=== PATIENT | female | born 1985 | race Caucasian/White ===

== ENCOUNTER 2017-03-30 09:13 | Outpatient (CLI) | payer OTHER ==
[~2017-03-30] VITALS: Ht 167.6 cm; Wt 71.7 kg
[2017-03-30 09:28] VITALS: Ht 167.6 cm; Wt 71.7 kg
[2017-03-30 09:29] VITALS: BP 131/79; PULSE 100; RESP 18
[2017-03-30] MEDS ORDERED: PNV11TAB PO (09:32)
--- NOTE | 2017-03-30 10:24 | RADRPT ---
PROCEDURE: OB ultrasound for biophysical profile CLINICAL INDICATION: Gestational diabetes mellitus. TECHNIQUE: Multiple sonographic images of the pelvis were obtained. Transabdominal view of the gr avid uterus are available for review. The images were reviewed on a PACS workstation. COMPARISON: None FINDINGS: breathing movement = 2/2 tone = 2/2 motion = 2/2 Quantitative amniotic fluid volume = 2/2 MAAME = 12.8 cm Single live intrauterine with cardiac activity at 128 beats per minute. There is a posterior placenta without previa or abruption. IMPRESSION: 1. Single living intrauterine gestation in cephalic position. 2. Biophysical profile = 01/04. 3. MAAME = 12.8 cm. RPTAT: [facility] Physician Franklin Date Time Electronically viewed and signed by Physician Franklin on 03/30/2017 10:24 /
--- NOTE | 2017-03-30 15:52 | PN ---
Triage Information Date/Time 03/30/2017 Reason for visit: For NST/ BPP due to GDM A1. sent by her OB Weeks of Gestation 35 weeks and 4 days /Para Diabetes: gestational Hypertention: none Additional information 32-year-old with IUP at 35 weeks and 4 days with gestational diabetes diet -controlled) is a care with Dr. Tamar Starr was sent for NST/BPP. She denies any leaking of fluid, vaginal bleeding or decreased movement. Has been compliant with checking her blood sugar. Her random blood sugar today is 90. Objective Vital Signs Date Time Temp Pulse Resp B/P Pulse Ox O2 Delivery O2 Flow Rate FiO2 03/30/17 09:29 98.1 100 18 131/79 Heart Rate: 130's Contractions: >10 Minutes Apart Exam General appearance: Alert and oriented 4. Patient does not appear to be in any acute distress. Abdomen: Soft, gravid, fundal height consistent with gestational age NST: Category 1 BPP: 01/04 PROCEDURE: OB ultrasound for biophysical profile CLINICAL INDICATION: Gestational diabetes mellitus. TECHNIQUE: Multiple sonographic images of the pelvis were obtained. Transabdominal view of the gravid uterus are available for review. The images were reviewed on a PACS workstation. COMPARISON: None FINDINGS: breathing movement = 2/2 tone = 2/2 motion = 2/2 Quantitative amniotic fluid volume = 2/2 MAAME = 12.8 cm Single live intrauterine with cardiac activity at 128 beats per minute. There is a posterior placenta without previa or abruption. IMPRESSION: 1. Single living intrauterine gestation in cephalic position. 2. Biophysical profile = 01/04. 3. MAAME = 12.8 cm. Results/Medications Results 24 hrs Laboratory Tests Test 03/30/17 11:08 Bedside Glucose 90 Disposition: Discharge Assessment/Plan IUP at 35 weeks and 4 days Gestational diabetes diet-controlled testing reassuring Patient was advised to return to clinic in 2 days for repeat NST/BPP and follow- up with her [facility] in 1 week or sooner as needed She will contact her [facility] office to inquire about follow-up appointments Strict labor precautions, kick count and follow-up with GI as in 2 days for repeat NST if I discussed with patient patient verbalized understanding VERONICA BARNES MD Mar 30, 2017 15:52
--- NOTE | 2017-03-30 16:04 | TRIAGE ---
OB Triage Datetime Report Generated by CPN: 03/30/2017 16:04 Datetime: 03/30/2017 12:15 Stage of : OB Triage Datetime: 03/30/2017 12:05 Comments: LOSS OF CONTACT, MATERNAL PULSE Datetime: 03/30/2017 11:56 Labor Evaluation Frequency: OCCAS Monitor Mode: External Duration (sec)2399: 30-50 Quality: Mild Resting Tone [place]: Relaxed Heart Rate FHR Baseline Rate: 135 Monitor Mode: External US Variability: Moderate 6-25 bpm Accelerations: 10X10 Decelerations: None Category: Category I Pain Assessment Pain Scale: 3 Pain Presence: Constant Pain Type: Ache Pain Location: Back Pain Goal: 3 Pain Relief Measures: Comfort Measures Datetime: 03/30/2017 11:42 Comments: mothers pulse Datetime: 03/30/2017 11:41 Stage of : OB Triage Datetime: 03/30/2017 11:33 Stage of : OB Triage Datetime: 03/30/2017 11:30 Stage of : OB Triage Datetime: 03/30/2017 11:20 Labor Evaluation Frequency: 0 Monitor Mode: External Resting Tone [place]: Relaxed Heart Rate FHR Baseline Rate: 135 Monitor Mode: External US Variability: Moderate 6-25 bpm Accelerations: 10X10 Decelerations: None Category: Category I Pain Assessment Pain Scale: 1 Pain Presence: Intermittent Pain Type: Cramping Pain Location: Abdomen Pain Goal: 3 Pain Relief Measures: Comfort Measures Datetime: 03/30/2017 11:00 Comments: loss of contact, mothers pulse Datetime: 03/30/2017 10:40 Monitor Mode: External US Comments: loss of contact, mothers pulse, Datetime: 03/30/2017 10:12 Labor Evaluation Frequency: occas Monitor Mode: External Duration (sec)2399: 30-50 Quality: Mild Resting Tone [place]: Relaxed Contraction Comments: feels mildly Heart Rate FHR Baseline Rate: 125 Monitor Mode: External US Variability: Moderate 6-25 bpm Accelerations: 10X10 Decelerations: None Category: Category I Pain Assessment Pain Scale: 3 Pain Presence: Intermittent Pain Type: Cramping Pain Location: Back Pain Goal: 3 Pain Relief Measures: Comfort Measures Datetime: 03/30/2017 09:45 Monitor Mode: External US Datetime: 03/30/2017 09:23 Stage of : OB Triage Assessment Type: Triage EGA: 35.4 Maternal Assessment Level of Consciousness: Fully Conscious DTR's/Clonus: DTRs 2+; No Clonus Headache: Denies Blurred Vision: No Respiratory Effort: Unlabored; Regular Rhythm; Equal Expansion Breath Sounds, Left: Clear and Equal Breath Sounds, Right: Clear and Equal Nausea/Vomiting: Denies RUQ Epigastric Pain: Denies Facial Edema: None Temperature Route: Axillary Fall Risk Assessment History of Falling: (0) No Secondary Diagnosis: (0) No Ambulatory Aid: (0) Bedrest/Nurse Assist IV Therapy: (0) No Gait: (0) Normal/Bedrest/Immobile Mental Status: (0) Oriented to Own Ability Fall Score: 0 Fall Risk Score Definition: No Risk: No action required Labor Evaluation Frequency: 0 Monitor Mode: External Resting Tone [place]: Relaxed Heart Rate FHR Baseline Rate: 125 Monitor Mode: External US Variability: Moderate 6-25 bpm Decelerations: None Category: Category II Pain Assessment Pain Scale: 0 Pain Presence: None/Denies Pain Type: N/A Pain Goal: 3 Pain Relief Measures: Comfort Measures Datetime: 03/30/2017 09:21 Time of Arrival: 03/30/2017 09:05 Arrived By: Ambulatory Arrived From: Home Chief Complaint: SENT FROM OFFICE NST/BPP GDM, DENIES BLEEDING, LEAKING OR UC'S Movement: Present Contractions: Occasional Rupture of Membranes: Denies Vaginal Bleeding: None Vaginal Discharge: Denies Recent Sexual Intercouse: Denies Abdominal Trauma: Not Applicable Patient Complaints: None Time Provider Notified: 03/30/2017 11:30 Provider Notified: camelia Initial Plan: MONITOR, BPP/MAAME,
== END 2017-03-30 12:20 | disposition home or self-care (01) ==
LOC: L-D 09:13 → OBT 09:13
PROVIDERS: ATTEND Obstetrics & Gynecology
DX: O24.410 Gestational diabetes mellitus in pregnancy, diet controlled (principal); Z3A.35 35 weeks gestation of pregnancy
CPT/HCPCS: 76818; 82962; Z7500; G0463

== ENCOUNTER 2017-04-25 07:08 | Inpatient (IN) | payer OTHER ==
--- NOTE | 2017-04-23 23:59 | PREOPHP ---
DATE OF ADMISSION: 04/01/2017 The patient is coming for surgery for 04/25/2017. HISTORY OF PRESENT ILLNESS: This is a 32-year-old female 3, para 2. This patient had 2 pre vious sections and her due date is 04/30/2017. She had a history of having a fundoplicatio n at and. She has been having issues in her childhood with male doctors for which she has ref used testing in pelvic area. She had done herself GBS culture that was negative. She is being offe red a repeat section. She does not want a tubal ligation and she has become a GDM by histo ry. She had refused all kinds of blood tests as well and she has been treated for hypoglycemia. Th is patient has been instructed on how she should be eating during to avoid hypoglycemia. She had refused a 1-hour and 3-hour GTT. Her hemoglobin A1c at the beginning was abnormally l ow and also we had positive drug screening that had been done randomly when she comes in the office. She had agreed to some testing. She had negative chlamydia, she had negative GBS, negative toxopl asmosis, thyroid was normal, negative cytomegalovirus and she had controlled her blood sugar. Cysti c fibrosis was negative and she had tested positive for marijuana several times. Her blood sugar le vels, like I had had been monitored by patient and they were very low in the morning for which instr uctions and diet had been explained several times. She had coming up for NSTs and BPPs that have be en normal. The patient is being admitted for a repeat section and she had refused tubal li gation. PAST MEDICAL HISTORY: Noncontributory on family's side. On her side is only for C-sections and so me issues in childhood that had determined she is scared of doctors and she does not let all the abel ts go on. She has marijuana usage. ALLERGIES: She does not have any allergies. SOCIAL HISTORY: She had no history of smoking or alcohol. PHYSICAL EXAMINATION: VITAL SIGNS: Height is 5 feet, 6 inches, initial weight was 145. At this time, she weighs 160, the blood pressure is 110/70, respirations 16, pulse is 80. HEAD AND NECK: Normal. CHEST: Clear. HEART: Normal sinus rhythm. LUNGS: Clear. BREASTS: Soft, nontender, no masses. ABDOMEN: Soft. Uterus at term with normal heart tones. PELVIC: Not done due to her refusal. EXTREMITIES: Normal with normal pulses and no edema. With a diagnosis of term , previous sections x2, GDM A1, she is undergoing a repea t section. She has been advised of the possible risks and possible complications of the pr ocedure with her alternatives and options. Written information was provided. She had no more quest ions and agreed to go ahead with the procedure with full understanding and no more questions. Dictated By: JOSE ELIAS DRAKE/NTS Conf#: [id number] DID#: [id number]
[~2017-04-25] VITALS: Ht 167.6 cm; Wt 70.5 kg
[~2017-04-25 07:08] MED LIST: EPHEDrine SULFATE 50 MG/5 ML SYG ONE; PNV11TAB PO
[2017-04-25 07:48] VITALS: BP 134/83; PULSE 108; RESP 20
[2017-04-25 07:51] VITALS: Ht 167.6 cm; Wt 70.5 kg
[2017-04-25] MEDS ORDERED: METHYLERGONOVINE 0.2 MG INJ IM PRN ×2 (08:00→10:00)
[2017-04-25] MEDS ORDERED: CEFAZOLIN 2 GM/50 ML (PMX) 50 ML IV SCH (08:00)
[2017-04-25] MEDS ORDERED: CARBOPROST 250 MCG INJ IM PRN ×2 (08:00→10:00)
[2017-04-25] MEDS ORDERED: OXYTOCIN 30 UNITS/LR 500 ML IV PRN ×2 (08:00→10:00)
[2017-04-25] MEDS ORDERED: MISOPROSTOL 200 MCG TAB PR PRN ×2 (08:00→10:00)
[2017-04-25] MEDS: LACTATED RINGER'S 1,000 ML IV SCH ×4 (08:32→21:03)
[2017-04-25] MEDS ORDERED: LACTATED RINGER'S 1,000 ML IV ONE (08:39)
[2017-04-25 08:53] LABS: INR 0.88; PROTIME 11.9 Sec (12.2-14.2); PT RATIO 0.9
[2017-04-25 08:54] LABS: PARTIAL THROMBOPLASTIN TIME 25.5 Sec (25.0-35.0)
[2017-04-25] MEDS ORDERED: METOCLOPRAMIDE 10 MG INJ IV ONE (09:00)
[2017-04-25] MEDS ORDERED: CITRIC ACID/SODIUM CITRATE 15 ML CUP PO ONE (09:00)
[2017-04-25] MEDS ORDERED: FAMOTIDINE 20 MG INJ IV ONE (09:00)
[2017-04-25 09:15] LABS: BASOPHIL # 0.1 10^3/ul (0.0-0.1); BASOPHILS % 0.4 % (0.0-2.0); EOSINOPHILS % 0.1 % (0.0-7.0); HEMATOCRIT 39.8 % (37.0-47.0); HEMOGLOBIN 14.1 g/dl (12.0-16.0); LYMPHOCYTES # 1.3 10^3/ul (0.8-2.9); LYMPHOCYTES % 9.6 % (15.0-51.0); MEAN CORPUSCULAR HEMOGLOBIN 33.1 pg (29.0-33.0); MEAN CORPUSCULAR VOLUME 93.4 fl (82.0-101.0); MEAN PLATELET VOLUME 11.1 fl (7.4-10.4); MONOCYTE # 0.7 10^3/ul (0.3-0.9); MONOCYTES % 5.5 % (0.0-11.0); NEUTROPHIL # 11.2 10^3/ul (1.6-7.5); NEUTROPHILS % 83.8 % (39.0-77.0); PLATELET COUNT 174 10^3/UL (140-415); RED BLOOD COUNT 4.26 10^6/ul (4.20-5.40); RED CELL DISTRIBUTION WIDTH 12.7 % (11.5-14.5); WHITE BLOOD COUNT 13.3 10^3/ul (4.8-10.8)
[2017-04-25 09:22] LABS: MEAN CORPUSCULAR HGB CONC 35.4 g/dl (32.0-37.0)
[2017-04-25] MEDS ORDERED: FENTAnyl 50 MCG/ML VIAL ONE ×2 (09:47→10:40)
[2017-04-25] MEDS ORDERED: morphine SULFATE/PF (10 MG/10 ML) INJ ONE (09:47)
[2017-04-25] MEDS: CEFAZOLIN 2 GM/50 ML (PMX) 50 ML IV SCH ×2 (09:53→17:55)
[2017-04-25] MEDS ORDERED: LANOLIN 7 GM TUBE TOP PRN (10:00)
[2017-04-25] MEDS ORDERED: HYDROCODONE/APAP (5/325) TAB PO PRN (10:00)
[2017-04-25] MEDS ORDERED: NA PHOSPHATE/BIPHOS 133 ML ENEMA PR PRN (10:00)
[2017-04-25] MEDS ORDERED: METHYLERGONOVINE 0.2 MG TAB PO PRN (10:00)
[2017-04-25] MEDS ORDERED: PHENYLephrine (100 MCG/ML) 5ML SYG ONE (10:03)
[2017-04-25] MEDS ORDERED: ONDANSETRON 4 MG INJ ONE (10:17)
[2017-04-25] MEDS ORDERED: MIDAZOLAM 1 MG/ML 2 ML INJ ONE ×3 (10:20→10:43)
[2017-04-25] MEDS ORDERED: MEPERIDINE 100 MG INJ ONE (10:39)
[2017-04-25] MEDS ORDERED: DIPHENHYDRAMINE 50 MG INJ ONE (10:52)
[2017-04-25] MEDS ORDERED: KETOROLAC 30 MG INJ ONE (10:56)
[2017-04-25 11:05] LABS: BARBITURATES Negative (NEGATIVE); BENZODIAZEPINES Negative (NEGATIVE); COCAINE Negative (NEGATIVE); OPIATES Negative (NEGATIVE)
[2017-04-25 11:08] LABS: CANNABINOIDS Positive (NEGATIVE)
--- NOTE | 2017-04-25 11:19 | SIPON ---
Date/Time of Note Date/Time of Note DATE: 04/25/17 TIME: 11:16 Operative Report Preoperative Diagnosis TERM PREVIOUS C/S GDM Postoperative Diagnosis SAME Operation/Procedure Performed REPEAT C/S Surgeon see signature line embroidery assistant DR ARREGUIN Anesthesia: spinal Estimated blood loss: other Transfusion Required none Specimen PLACENTA Grafts/Implants none Complications none JOSE ELIAS NEWBY MD Apr 25, 2017 11:19
[2017-04-25] MEDS: OXYTOCIN 30 UNITS/LR 500 ML IV SCH ×3 (11:32→16:32)
[2017-04-25] MEDS ORDERED: KETOROLAC 30 MG INJ IV PRN (12:00)
[2017-04-25] MEDS ORDERED: MEPERIDINE 25 MG INJ IV PRN (12:00)
[2017-04-25] MEDS ORDERED: HYDROmorphONE (0.2 MG/ML) 10ML SYG IV PRN ×3 (12:00)
[2017-04-25] MEDS ORDERED: ZOLPIDEM 5 MG TAB PO PRN (12:00)
[2017-04-25] MEDS ORDERED: ONDANSETRON 4 MG INJ IV PRN ×2 (12:00)
[2017-04-25] MEDS ORDERED: PROCHLORPERAZINE 10 MG INJ IV PRN (12:00)
[2017-04-25] MEDS ORDERED: NALBUPHINE HCL (10 MG/1 ML) INJ IV PRN (12:00)
[2017-04-25] MEDS ORDERED: HYDROmorphONE 0.5 MG/0.5 ML SYG IV PRN (12:00)
[2017-04-25] MEDS ORDERED: NALOXONE (0.4 MG/ML) INJ IV PRN (12:00)
[2017-04-25] MEDS ORDERED: FENTAnyl 50 MCG/ML VIAL IV PRN ×3 (12:00)
[2017-04-25] MEDS ORDERED: DIPHENHYDRAMINE 50 MG INJ IV PRN ×2 (12:00)
[2017-04-25 15:20] VITALS: BP 115/65; PULSE 88; RESP 18
[2017-04-25] MEDS: KETOROLAC 30 MG INJ IV SCH ×3 (16:24→22:00)
[2017-04-25 16:43] VITALS: BP 135/68; PULSE 91; RESP 18
[2017-04-25 19:30] VITALS: BP 119/64; PULSE 87; RESP 21
[2017-04-25] MEDS: SENNA/DOCUSATE NA (8.6MG/50MG) TAB PO SCH (21:00)
[2017-04-26] MEDS: CEFAZOLIN 2 GM/50 ML (PMX) 50 ML IV SCH ×2 (02:20→10:16)
[2017-04-26] MEDS: HYDROmorphONE 0.5 MG/0.5 ML SYG IV PRN ×2 (02:21→06:43)
[2017-04-26 04:00] VITALS: BP 111/68; PULSE 73; RESP 20
[2017-04-26] MEDS: KETOROLAC 30 MG INJ IV SCH ×3 (04:09→16:00)
[2017-04-26] MEDS: LACTATED RINGER'S 1,000 ML IV SCH (04:13)
--- NOTE | 2017-04-26 06:03 | OPR ---
DATE OF OPERATION: 04/25/2017 PROCEDURE: Repeat low segment transverse section. PREOPERATIVE DIAGNOSES: 1. Term . 2. Previous section. 3. Gestational diabetes. POSTOPERATIVE DIAGNOSES: 1. Term . 2. Previous section. 3. Gestational diabetes. SURGEON: Jose Elias Carney MD. ENERGY PROJECT ENGINEER: . ANESTHESIOLOGIST: Dr. Rosales. ANESTHESIA: Spinal. DESCRIPTION OF PROCEDURE: The patient was given a spinal anesthesia, placed in the supine position. The abdomen was prepped and draped after the Johns catheter was placed in the bladder. An ellipti sandra incision was made around the previous old scar, the scar was removed and the abdomen was opened in layers without difficulties. There were extensive adhesions of the lower part of the uterus to t he abdominal wall. The incision was made in the lower uterine segment and the amniotic fluid was cl ear. The baby's head was delivered and the body was followed. There was a cord around the neck michelle t was passed through. The cord was clamped and cut. The baby was handed over to the cycling instructor team and cord blood was obtained. The placenta was removed. The uterus was cleaned out and the cer vix was opened. The uterus was closed with #1 Monocryl continuous suture in 2 layers, imbedding the first line of suture and hemostasis was good. The uterus was hypertrophic. Both tubes and ovaries were normal. The abdominal cavity was cleaned out and the peritoneum was closed with a 2-0 Vicryl. The fascia was closed with a PDS looped suture, 2-0 Vicryl for the subcutaneous tissue, 3-0 Monocr yl subcuticular to the skin with the usage of Dermabond and Steri-Strips. The patient tolerated the procedure well and left the OR awake and stable. Sponge counts, instrument counts, needle counts w ere correct. Intravenous antibiotics were given for prophylaxis. Blood loss was about 700 mL and t he urine was clear. Dictated By: JOSE ELIAS DRAKE/NTS Conf#: [id number] DID#: [id number]
[2017-04-26 07:40] VITALS: BP 132/60; PULSE 88; RESP 18
[2017-04-26] MEDS: SENNA/DOCUSATE NA (8.6MG/50MG) TAB PO SCH ×2 (09:00→20:55)
[2017-04-26 12:25] LABS: BASOPHIL # 0.1 10^3/ul (0.0-0.1); BASOPHILS % 0.4 % (0.0-2.0); EOSINOPHILS % 0.2 % (0.0-7.0); HEMATOCRIT 33.6 % (37.0-47.0); HEMOGLOBIN 12.1 g/dl (12.0-16.0); LYMPHOCYTES # 1.2 10^3/ul (0.8-2.9); LYMPHOCYTES % 9.3 % (15.0-51.0); MEAN CORPUSCULAR HEMOGLOBIN 33.8 pg (29.0-33.0); MEAN CORPUSCULAR VOLUME 93.9 fl (82.0-101.0); MEAN PLATELET VOLUME 11.2 fl (7.4-10.4); MONOCYTE # 1.2 10^3/ul (0.3-0.9); MONOCYTES % 9.7 % (0.0-11.0); NEUTROPHILS % 80.1 % (39.0-77.0); PLATELET COUNT 174 10^3/UL (140-415); RED BLOOD COUNT 3.58 10^6/ul (4.20-5.40); RED CELL DISTRIBUTION WIDTH 13.1 % (11.5-14.5); WHITE BLOOD COUNT 12.5 10^3/ul (4.8-10.8)
[2017-04-26] MEDS: HYDROCODONE/APAP (5/325) TAB PO PRN ×2 (13:41→23:53)
[2017-04-26 15:50] VITALS: BP 112/65; PULSE 66; RESP 18
--- NOTE | 2017-04-26 18:33 | PN ---
Date/Time of Note Date/Time of Note DATE: 04/26/17 TIME: 18:33 Assessment/Plan Lines/Catheters IV Catheter Type (from Nrsg): Peripheral IV Subjective 24 Hr Interval Summary da 1 post c/s Constitutional: BM, ambulates, flatus, improved, no complaints, urine output Feeding: advancing diet Pain Control: well controlled Detailed Summary Eyes: no complaints ENT: no complaints Respiratory: no complaints Cardiovascular: no complaints Gastrointestinal: no complaints Genitourinary: no complaints Musculoskeletal: no complaints Skin: no complaints Neurologic: no complaints Endocrine: no complaints Lymphatic: no complaints Psychological: nl mood/affect, no complaints Immunologic: no complaints Exam/Review of Systems Vital Signs Vitals Vital Signs Date Time Temp Pulse Resp B/P Pulse Ox O2 Delivery O2 Flow Rate FiO2 04/26/17 15:50 97.7 66 18 112/65 Room Air 04/26/17 03:22 98 21 Intake and Output 04/25/17 04/25/17 04/26/17 15:00 23:00 07:00 Intake Total 2500 ml 1500 ml 125 ml Output Total 2150 ml 900 ml 700 ml Balance 350 ml 600 ml -575 ml Exam Constitutional: alert, oriented, well developed Psych: nl mood/affect, no complaints Head: atraumatic, normocephalic Eyes: EOMI, nl conjunctiva, nl lids, nl sclera ENMT: mucosa pink and moist, nl external ears & nose, nl lips & teeth, nl nasal mucosa & septum Neck: non-tender, supple Respiratory: clear to auscultation, normal air movement Cardiovascular: nl pulses, regular rate and rhythm Gastrointestinal: nl liver, spleen, non-tender, soft Musculoskeletal: nl extremities to inspection, nl gait and stance Extremities: normal pulses Neurological: CIGARETTE ROLLER II-XII intact, nl mental status, nl speech, nl strength Skin: nl turgor, rash or lesions Lymph: nl lymph nodes Results Result Diagram: 04/26/17 1121 04/25/17 0815 JOSE ELIAS NEWBY MD Apr 26, 2017 18:33
[2017-04-26] MEDS ORDERED: BISACODYL (EC) 5 MG TAB PO ONE (19:00)
[2017-04-26 19:50] VITALS: BP 130/70; PULSE 85; RESP 20
[2017-04-26] MEDS: IBUPROFEN 800 MG TAB PO SCH (21:56)
[2017-04-27] MEDS: HYDROCODONE/APAP (5/325) TAB PO PRN ×3 (02:00→11:34)
[2017-04-27 03:00] VITALS: BP 128/66; PULSE 84; RESP 19
[2017-04-27] MEDS: IBUPROFEN 800 MG TAB PO SCH ×2 (06:08→14:36)
[2017-04-27 07:42] VITALS: BP 126/68; PULSE 85; RESP 19
[2017-04-27] MEDS: SENNA/DOCUSATE NA (8.6MG/50MG) TAB PO SCH (09:00)
--- NOTE | 2017-04-27 12:43 | PD.PPDC ---
KEY ACCOUNT DIRECTOR Discharge Instruction Condition Patient Condition: Good Diet Diet: Resume Regular Diet Activity/Restrictions Activity: Normal Activity May Shower Restrictions: No Exercising No Lifting No Driving No Sexual Activity Nothing in the Vagina No [place] No Tampons, douche Wound/Drain Care Instructions Wound/Drain Care Instructions: Wash with soap and water Keep clean and dry Follow-up Follow-up with Physician: 2, Week/Weeks Return to clinic for CUT OFF SAW GRADER Instructions: Fever greater than 101 Chills Worsening abdominal pain Excessive Vaginal Bleeding More than 2 pads per hour Unable to tolerate diet OB Instructions: Breast Tenderness Depression Blurried Vision Headache Surgical Instructions: Incisional Drainage Incisional Redness JOSE ELIAS NEWBY MD Apr 27, 2017 12:43
--- NOTE | 2017-04-27 12:46 | DS ---
Date/Time of Note Date/Time of Note DATE: 04/27/17 TIME: 12:44 Obstetrical Discharge Record Final Diagnosis Final Diagnosis: Term delivered Other Final Diagnosis Term Gestational diabetes A1 Previous section Repeat section Section Section: Repeat Complications Gestational Diabetes Augmentation: No Induction: No Rupture of Membranes: No Condition on Discharge Physical Assessment Voiding: Yes Bowel Movement: Yes Breast: Soft, non-tender, Filling Fundus: Firm Abdomen and Incision: Incision healing well Patient is ambulatory Afebrile Tolerating diet, voiding well, had a bowel movement. Incision is healing very well. Pain is controlled with p.o. meds Laboratory testing near normal. Instructions were given to call me at any time with any problems or see me in the office in 1 week Calf Tenderness: No Patient Condition: Good JOSE ELIAS NEWBY MD Apr 27, 2017 12:46
[2017-04-28] MEDS ORDERED: DIPHTH/TET/ACEL PERTUSS (ADULT) 0.5 ML VIAL IM* ONE (09:00)
== END 2017-04-27 15:00 | disposition home or self-care (01) | DRG 765 ==
LOC: L-D 07:08 → PP1 14:59
PROVIDERS: ADMIT Obstetrics & Gynecology; ATTEND Obstetrics & Gynecology
PROC: 10D00Z1 Extraction of Products of Conception, Low, Open Approach (ICD-10-PCS; principal; 2017-04-25 09:00)
DX: O34.211 Maternal care for low transverse scar from previous cesarean delivery (principal); O99.324 Drug use complicating childbirth; O24.420 Gestational diabetes mellitus in childbirth, diet controlled; F12.90 Cannabis use, unspecified, uncomplicated; Z37.0 Single live birth; Z3A.39 39 weeks gestation of pregnancy
CPT/HCPCS: 80307; 82947; 85025; 85610; 85730; 86592; 86850; 86870; 86900; 86901; 86902; 87340; 94760; 99464; J0690; J1170; J1200; J1885; J2175; J2250; J2274; J2370; J2405; J2590; J2765; J3010; J7120

== ENCOUNTER 2017-04-29 11:15 | Emergency (ER) | payer OTHER ==
[~2017-04-29] VITALS: Ht 167.6 cm; Wt 69.2 kg
[2017-04-29 11:29] VITALS: Ht 167.6 cm; Wt 69.2 kg
[2017-04-29] MEDS ORDERED: HYDROmorphONE 2 MG/ML SYG IM STA (11:45)
[2017-04-29] MEDS ORDERED: ONDANSETRON (ODT) 4 MG TAB ODT STA (11:45)
[2017-04-29] MEDS ORDERED: CEPHALEXIN 500 MG CAP PO ONE (12:00)
[2017-04-29] MEDS ORDERED: HYDR-902 PO (12:23)
[2017-04-29] MEDS ORDERED: CEPH-443 PO (13:41)
--- NOTE | 2017-04-29 13:51 | ERD ---
ER Documentation Chief Complaint Chief Complaint Pt presents with B breast pain X 2 days, hx of mastitis, c-sec 04/25 HPI Patient is a 32-year-old female with no medical problems who presents saying that she has "mastitis and breast engorgement". She said her symptoms started on Tuesday after she delivered her baby. She has subjective fever and nausea. She took [place] and ibuprofen. She is refusing to pump because she says nothing comes out. Upon review of old medical records this is the patient' s first visit to the emergency department. She is requesting a medicine to stop her milk production. ROS All systems reviewed and are negative except as per history of present illness. Medications Home Meds Active Scripts Cephalexin* (Keflex*) 500 Mg Capsule, 500 MG PO QID for 7 Days, CAP Prov:RHODA CAMPBELL MD 04/29/17 Hydrocodone/Acetaminophen ([place] 10-325 Tablet) 1 Each Tablet, 1 TAB PO Q6H Y for PAIN, #7 TAB Prov:RHODA CAMPBELL MD 04/29/17 Discontinued Reported Medications [id number] ( 19) 1 Each Tablet, 1 TAB PO DAILY, TAB 03/30/17 Allergies Allergies: Coded Allergies: No Known Allergy (Unverified , 03/30/17) PMhx/Soc Medical and Surgical Hx: pt denies Medical Hx History of Surgery: Yes (C/S X3) Anesthesia Reaction: No Hx Neurological Disorder: No Hx Respiratory Disorders: No Hx Cardiac Disorders: No Hx Psychiatric Problems: No Hx Miscellaneous Medical Probl: Yes Hx Alcohol Use: No Hx Substance Use: No Hx Tobacco Use: No Smoking Status: Never smoker FmHx Family History: No diabetes Physical Exam Vitals Vital Signs Date Time Temp Pulse Resp B/P Pulse Ox O2 Delivery O2 Flow Rate FiO2 04/29/17 11:29 99.4 78 18 167/104 100 Physical Exam Const: Moderate distress secondary to pain Head: Atraumatic Eyes: Normal Conjunctiva ENT: Normal External Ears, Nose and Mouth. Neck: Full range of motion..~ No meningismus. Resp: Clear to auscultation bilaterally Cardio: Regular rate and rhythm, no murmurs Abd: Soft, non tender, non distended. Normal bowel sounds Skin: Breast engorgement with tenderness to palpation bilaterally but no obvious signs of cellulitis or abscess Back: No midline or flank tenderness Ext: No cyanosis, or edema Neur: Awake and alert Psych: Normal Mood and Affect Results 24 hrs Current Medications Medications (Trade) Dose Ordered Sig/Meredith Route PRN Reason Start Time Stop Time Status Last Admin Dose Admin Hydromorphone HCl (Dilaudid) 2 mg ONCE STAT IM 04/29/17 11:45 04/29/17 11:46 DC 04/29/17 11:53 Ondansetron HCl (Zofran Odt) 4 mg ONCE STAT ODT 04/29/17 11:45 04/29/17 11:46 DC 04/29/17 11:52 Cephalexin (Keflex) 500 mg ONCE ONCE PO 04/29/17 12:00 04/29/17 12:01 DC 04/29/17 11:52 Procedures/MDM Patient is a 32-year-old female who presents with bilateral pleural breast engorgement after delivery of her baby. She was given Dilaudid and feels better. I had the customer care voice consultant come to the bedside but the patient is refusing any sort of pumping. The patient will be given Keflex and [place] for pain and possible mastitis. The patient is requesting a medicine which he thinks may be bromocriptine to stop her milk production however I do not feel comfortable prescribing this at this time and this would need to be done by her OB doctor if required. I believe outpatient management is appropriate. Departure Diagnosis: Primary Impression: Engorgement of breasts, Additional Impression: Breast pain Condition: Fair Patient Instructions: Pain Management Referrals: JOSE ELIAS NEWBY MD Additional Instructions: Call your primary care doctor TOMORROW for an appointment during the next 1-2 days.See the doctor sooner or return here if your condition worsens before your appointment time. RHODA CAMPBELL MD Apr 29, 2017 13:50
== END 2017-04-29 14:12 | disposition home or self-care (01) ==
LOC: E/R 11:15
DX: O92.79 Other disorders of lactation (principal)
CPT/HCPCS: 96372; J1170; Z7502; Z7610